=== PATIENT | male | born 1935 | race Caucasian/White ===

== ENCOUNTER 2017-06-27 12:51 | Emergency (ER) | payer OTHER ==
[~2017-06-27 12:51] MED LIST: ALLOPURINOL100 MG PO; ALPH-E-MIXED-4400 IU PO; AMLODIPINE10 MG PO; ASPIRIN CHILDRE81 MG PO; ATORVASTATIN CA40 MG PO; CENTRUM SILVER1 TA1 PO; CIPRO 500MG TA500 MG PO; CO Q-10 100 MG-1 SGL PO; FISH OIL CONC1000 MG PO; HYDRODIURIL 2525 MG PO; LOPRESSOR 25MG25 MG PO; LOSARTAN POTAS100 MG PO; VITAMIN B121000 MC2 PO; VITAMIN D32000 I1 PO
[2017-06-27] MEDS ORDERED: ALLOPURINOL100 M1 PO (14:08)
[2017-06-27] MEDS ORDERED: ASPIRIN EC81 M1 PO (14:09)
[2017-06-27] MEDS ORDERED: AMLODIPINE BESY10 M1 PO (14:09)
[2017-06-27] MEDS ORDERED: ATORVASTATIN CA40 M1 PO (14:10)
[2017-06-27] MEDS ORDERED: HYDROCHLOROTH12.5 M3 PO (14:10)
[2017-06-27] MEDS ORDERED: LOSARTAN POTAS100 M1 PO (14:11)
[2017-06-27] MEDS ORDERED: METOPROLOL TART25 M1 PO (14:12)
[2017-06-27] MEDS ORDERED: VITAMIN B-121000 MC3 PO (14:12)
[2017-06-27] MEDS ORDERED: CO Q-10100 MG PO (14:13)
[2017-06-27] MEDS ORDERED: VITAMIN D31000 UNI1 PO (14:14)
[2017-06-27] MEDS ORDERED: OMEGA 3-6-9 11200 MG PO (14:15)
[2017-06-27] MEDS ORDERED: VITAMIN E400 UNI1 PO (14:15)
[2017-06-27] MEDS ORDERED: CENTRUM SILVER1 EAC4 PO (14:16)
--- NOTE | 2017-06-27 14:23 | ED GI/GU/ABDOMINAL COMPLAINT ---
History of Present Illness General Chief Complaint: Nausea, Vomiting, Diarrhea Stated Complaint: NVD Source: patient Exam Limitations: no limitations Vital Signs & Intake/Output Vital Signs & Intake/Output Vital Signs Date Time Temp Pulse Resp B/P B/P Pulse O2 O2 Flow FiO2 Mean Ox Delivery Rate 06/27 1721 97.6 89 18 177/78 98 Room Air 06/27 1503 97.8 73 17 130/61 94 Room Air 06/27 1302 96.9 89 20 147/70 97 Allergies Coded Allergies: NO KNOWN ALLERGIES (05/29/13) Reconcile Medications Allopurinol 100 MG TABLET 1 TAB PO DAILY GOUT (Reported) Amlodipine Besylate 10 MG TABLET 1 TAB PO DAILY HTN (Reported) Aspirin (Ecotrin*) 81 MG TABLET.DR 1 TAB PO DAILY HEART HEALTH (Reported) Atorvastatin Calcium 40 MG TABLET 1 TAB PO DAILY CHOLESTROL (Reported) Cholecalciferol (Vitamin D3) (Vitamin D3) 1,000 UNIT CAPSULE 2 CAP PO DAILY VITAMIN (Reported) Cyanocobalamin (Vitamin B-12) 1,000 MCG TABLET 1 TAB PO DAILY VITAMIN ( Reported) Fish Oil/Borage/Flax/Om3,6,9#1 ([place] 3-6-9 1,200 MG Softgel) 1,200 MG CAPSULE 1 CAP PO DAILY VITAMIN (Reported) Hydrochlorothiazide 12.5 MG CAPSULE 1 CAP PO DAILY HTN (Reported) Losartan Potassium 100 MG TABLET 1 TAB PO DAILY HTN (Reported) Metoprolol Tartrate 25 MG TABLET 0.5 TAB PO BID HEART HEALTH (Reported) Multivit-Min/FA/Lycopen/Lutein (Centrum Silver Men Tablet) 300 MCG-600 MCG-300 MCG TABLET 1 TAB PO DAILY VITAMIN (Reported) Ondansetron (Zofran Odt) 4 MG TAB.RAPDIS 1 TAB PO Q6 PRN NAUSEA Ubidecarenone (Co Q-10) 100 MG CAPSULE 1 TAB PO DAILY VITAMIN (Reported) Vitamin E (Dl,Tocopheryl Acet) (Vitamin E) 400 UNIT CAPSULE 1 TAB PO DAILY VITAMIN (Reported) Triage Note: PER PT VOMITING AND DIARRHEA SINCE YESTERDAY, NO VOMITING TODAY FEELS LOUSY. POOR PO INTAKE. UNABLE TO KEEP DAILY MEDS DOWN Triage Nurses Notes Reviewed? yes Onset: Afternoon Duration: day(s): (2) Timing: recent history Quality/Severity: mild, moderate HPI: This is a 81-year-old male who presents to the ER with abdominal pain, vomting and diarrhea since yesterday. Patient denies vomiting today but states he has a poor appetite and feels lousy. He also reports not being able to keep his medications down. No fever or chills. No abdominal pain. Past History Travel History Traveled to [place] past 21 day No Medical History Any Pertinent Medical History? 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 No Review of Systems Review of Systems Constitutional: Reports: malaise, weakness. Denies: chills, fever. EENTM: Reports: no symptoms. Respiratory: Denies: cough, short of breath. Cardiovascular: Denies: chest pain, palpitations. GI: Reports: diarrhea, nausea, vomiting. Denies: abdominal pain. Genitourinary: Denies: discharge, dysuria. Musculoskeletal: Denies: back pain. Skin: Reports: no symptoms. Neurological/Psychological: Reports: no symptoms. Hematologic/Endocrine: Denies: bruising, bleeding, polyuria, polydipsia. Immunologic/Allergic: Reports: no symptoms. All Other Systems: Reviewed and Negative Physical Exam Physical Exam General Appearance: well developed/nourished, alert, awake, mild distress, moderate distress Head: atraumatic, normal appearance Eyes: Bilateral: PERRL. Ears, Nose, Throat, Mouth: dry mucus membranes Neck: normal inspection, supple, full range of motion Respiratory: normal breath sounds, chest non-tender, no respiratory distress Cardiovascular: regular rate/rhythm Peripheral Pulses: 2+ radial (R), 2+ radial (L) Gastrointestinal: normal bowel sounds, soft, non-tender Back: normal inspection, normal range of motion Extremities: normal range of motion Neurologic/Psych: no motor/sensory deficits, awake, alert, oriented x 3 Core Measures ACS in differential dx? No Sepsis Present: No Sepsis Focused Exam Completed? No Progress Differential Diagnosis: GASTROENTERITIS, VIRAL SYNDOME, OSMANY, DEHYDARTION, FOOD POISONING Plan of Care: Orders Procedure Date/time Status LACTIC ACID 06/27 1721 Active CULTURE,STOOL 06/27 1421 Active OVA AND PARASITE ANTIGENS 06/27 142 Active C.DIFFICILE 06/27 142 Active URINALYSIS 06/27 142 Complete LIPASE 06/27 1421 Complete LACTIC ACID 06/27 142 Complete COMPREHENSIVE METABOLIC PANEL 06/27 142 Complete CBC WITHOUT DIFFERENTIAL 06/27 1420 Complete Laboratory Tests 06/27/17 1455: Urinalysis LIGHT H, Urine Color YEL, Urine Clarity CLEAR, Urine pH 6.0, Ur Specific [place] >= 1.030, Urine Protein 30 H, Urine Ketones NEG, Urine Nitrite NEG, Urine Bilirubin NEG, Urine Urobilinogen 0.2, Ur Leukocyte Esterase NEG, Ur Microscopic SEDIMENT EXAMINED, Urine RBC 1-3, Urine WBC 3-5 H, Ur Epithelial Cells RARE, Urine Bacteria MOD H, Hyaline Casts PACK H, Granular Casts 15-25 H, Urine Mucus MOD H, Urine Hemoglobin NEG, Urine Glucose NEG 06/27/17 1429: Anion Gap 17 H, Estimated GFR 58 L, BUN/Creatinine Ratio 38.3 H, Glucose 119 H, Lactic Acid 1.5, Calcium 8.9, Total Bilirubin 0.7, AST 37, ALT 50, Alkaline Phosphatase 77, Total Protein 7.2, Albumin 4.5, Globulin 2.7, Albumin/Globulin Ratio 1.7, Lipase 91, CBC w Diff NO MAN DIFF REQ, RBC 4.62 L, MCV 91.6, MCH 30.7, MCHC 33.5, RDW 13.2, MPV 8.2, Gran % 66.9, Lymphocytes % 21.7, Monocytes % 10.6 H, Eosinophils % 0.3, Basophils % 0.5, Absolute Granulocytes 4.1, Absolute Lymphocytes 1.3, Absolute Monocytes 0.6, Absolute Eosinophils 0, Absolute Basophils 0 Microbiology 06/27 1455 STOOL: Cryptosporidium Antigen - RECD 06/27 1454 STOOL: Giardia Antigen (LEVAR) - RECD 06/27 1454 STOOL: Clostridium difficile Toxin A & B - RECD 06/27 1454 STOOL: Stool Culture - RECD 5:21 PM PATIENT TOLERATING PO, FEELING BETTER. STOOL CULTURES PENDING IN LAB. STABLE FOR DISCHARGE HOME. 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 Clear liquid diet and advance as tolerated. Please follow-up with your doctor in the office. Her turn to the ER for any changing or worsening symptoms. You will get a call back for any positive stool cultures that need treatment. Departure Forms: Customer Survey General Discharge Information Prescriptions: Current Visit Scripts Ondansetron (Zofran Odt) 1 TAB PO Q6 PRN NAUSEA #10 TAB
[2017-06-27 14:43] LABS: ABSOLUTE BASOPHIL COUNT 0 /CUMM (0.0-0.2); ABSOLUTE EOSINOPHIL COUNT 0 /CUMM (0.0-0.7); ABSOLUTE GRANULOCYTE CT 4.1 /CUMM (1.4-6.5); ABSOLUTE LYMPH COUNT 1.3 /CUMM (1.2-3.4); ABSOLUTE MONOCYTE COUNT 0.6 /CUMM (0.10-0.60); BASOPHIL % 0.5 % (0.0-2.0); EOSINOPHIL % 0.3 % (0-5); GRANULOCYTE % 66.9 % (42.2-75.2); HEMATOCRIT 42.3 % (42-52); MEAN CORPUSCULAR HGB 30.7 PG (27.0-31.0); MEAN CORPUSCULAR HGB CONC 33.5 G/DL (33.0-37.0); MEAN CORPUSCULAR VOLUME 91.6 FL (80.0-94.0); MEAN PLATELET VOLUME 8.2 FL (7.4-10.4); PLATELET COUNT 221 /CUMM (130-400); RBC DISTRIBUTION WIDTH 13.2 % (11.5-14.5); RED BLOOD CELL CT 4.62 /CUMM (4.70-6.10); WHITE BLOOD CELL COUNT 6.1 /CUMM (4.8-10.8)
[2017-06-27 17:21] VITALS: BP 177/78
[2017-06-27] MEDS ORDERED: ZOFRAN ODT4 M1 PO (17:22)
== END 2017-06-27 17:37 ==
LOC: ERH 12:51
PROVIDERS: Emergency Medicine
DX: K52.9 Noninfective gastroenteritis and colitis, unspecified (principal); E86.0 Dehydration
CPT/HCPCS: 81001; 87045; 87328; 87329